=== PATIENT | female | born 1930 | race Caucasian/White ===

== ENCOUNTER → 2017-07-12 08:35 | Outpatient (CLI) | payer MEDICARE, BC ==
[2017-07-14 20:08] LABS: C-TELOPEPTIDE (SERUM) 280 pg/mL (())
== END | disposition home or self-care (01) ==
LOC: D.LAB 08:35
PROVIDERS: Dentist General Practice
DX: Z51.81 Encounter for therapeutic drug level monitoring (principal); Z79.899 Other long term (current) drug therapy